=== PATIENT | male | born 1965 | race Caucasian/White ===

== ENCOUNTER → 2024-09-11 06:24 | Day surgery (SDC) | payer BC, SELFPAY ==
[2024-09-11 07:50] LABS: Glucose - Point of Care 142 mg/dl (70-99)
== END ==
LOC: GI 06:24
PROVIDERS: ATTENDING PHYSICIAN Internal Medicine Gastroenterology; FAMILY PHYSICIAN Family Medicine
DX: Z12.11 Encounter for screening for malignant neoplasm of colon (principal); K57.30 Diverticulosis of large intestine without perforation or abscess without bleeding; K64.8 Other hemorrhoids; K31.7 Polyp of stomach and duodenum; K31.89 Other diseases of stomach and duodenum; R12 Heartburn
CPT/HCPCS: 45380; 43239; 88305; 82962; 88342

== ENCOUNTER → 2025-02-11 07:07 | Outpatient (REF) | payer OTHER, SELFPAY | LOC: MRI 07:07 | PROVIDERS: ATTENDING PHYSICIAN Orthopaedic Surgery; FAMILY PHYSICIAN Family Medicine | DX: M25.562 Pain in left knee (principal) | CPT/HCPCS: 73721 ==

== ENCOUNTER → 2025-09-09 15:22 | Outpatient (REF) | payer OTHER, SELFPAY | LOC: HWRAD 15:22 | PROVIDERS: ATTENDING PHYSICIAN Dermatology MOHS-Micrographic Surgery; FAMILY PHYSICIAN Family Medicine | DX: C86.60 Primary cutaneous CD30-positive T-cell proliferations not having achieved remission (principal) | CPT/HCPCS: 76536 ==

== ENCOUNTER → 2025-09-16 16:57 | Outpatient (REF) | payer OTHER, SELFPAY | LOC: RAD 16:57 | PROVIDERS: ATTENDING PHYSICIAN Dermatology MOHS-Micrographic Surgery; FAMILY PHYSICIAN Family Medicine | DX: C86.60 Primary cutaneous CD30-positive T-cell proliferations not having achieved remission (principal) | CPT/HCPCS: 70491; Q9967 ==